=== PATIENT | female | born 1970 | race Caucasian/White ===

== ENCOUNTER 2024-11-08 16:37 | Inpatient (IN) | payer BC ==
[2024-11-08] MEDS ORDERED: FAMOTIDINE 20 MG/2 ML VIAL IV ONE (17:16)
[2024-11-08] MEDS ORDERED: MORPHINE 4 MG/ML SYR ONE (17:16)
[2024-11-08] MEDS ORDERED: ONDANSETRON 4 MG/2 ML VIAL ONE (17:16)
[2024-11-08] MEDS ORDERED: NA CHLORIDE 0.9% 1,000 ML ONE (17:16)
[2024-11-08 17:19] LABS: Absolute Lymphocytes (CBC) 1.3 K/uL (0.7-4.9); Hematocrit 51.2 % (36.0-45.0); Hemoglobin 17.7 g/dL (12.0-15.0); MCH 30.1 pg (27.0-35.0); MCHC 34.6 g/dL (32.0-36.0); MCV 86.9 fL (80-100); MPV 7.7 fL (7.6-11.3); Nucleated RBC Absolute Count 0.1 (0-0); Nucleated Red Blood Cells % 0.4 % (0-0); RBC Red Blood Cell Count 5.89 M/uL (3.86-4.86); White Blood Count 21.30 thou/uL (4.3-10.9)
[2024-11-08 17:35] LABS: ALT/SGPT 16.0 U/L (13-56); AST/SGOT 18.0 U/L (15-37); Albumin 3.6 g/dL (3.4-5.0); Albumin/Globulin Ratio 0.8 (1.1-1.8); Alkaline Phosphatase 85.0 U/L (45-117); Anion Gap 14.4 mEq/L (5.0-15.0); BUN Blood Urea Nitrogen 8.0 mg/dL (7-18); Globulin 4.3 g/dL (2.3-3.5); Glucose Level 161.0 mg/dL (74-106); Lipase 23.0 U/L (13-75); Potassium 3.4 mEq/L (3.5-5.1)
[2024-11-08 18:17] LABS: Differential Total Cells Count 100
[2024-11-08 18:18] LABS: Segmented Neutrophils 86 % (40-80)
[2024-11-08 18:19] LABS: Smudge Cells PRESENT; Toxic Granulation 1+
[2024-11-08 18:20] LABS: Blood Morphology Comment NOT SEEN (NOT SEEN); Platelets, Giant PRESENT
[2024-11-08] MEDS ORDERED: NA CHLORIDE 0.9% 100 ML ONE (18:51)
[2024-11-08] MEDS ORDERED: PIPERACIL/TAZO 3.375 GM VIAL IV ONE (18:52)
--- NOTE | 2024-11-08 18:54 | RAD REPORT ---
EXAMINATION: CT Abdomen Pelvis W Contrast CLINICAL INDICATION: Female, 54 years old. ABD PAIN TECHNIQUE: CT abdomen and pelvis was performed, after the administration of IV contrast, as per depar tment protocol. Axial, sagittal and coronal reconstructions were obtained. One or more of the following dose reduction techniques were used: Automated exposure control, adjustment of the mA and k V according to patient size, and iterative reconstruction. Unless otherwise specified, incidental findings do not require dedicated imaging follow-up. COMPARISON: Pelvis MRI 01/29/2018. FINDINGS: LOWER CHEST: The visualized lung bases are clear. LIVER: Normal in size and contour. No focal lesion. BILIARY SYSTEM: Status post cholecystectomy. SPLEEN: Normal size. No focal lesion. PANCREAS: No mass, ductal dilation, or yancy-pancreatic fluid. ADRENALS: Normal; no mass. KIDNEYS: Normal size and contour. No hydronephrosis. Small exophytic left posterior cortical 1 cm cys t. URINARY BLADDER: Decompressed limiting evaluation. GASTROINTESTINAL TRACT: Mild free ascites predominantly in the pelvis. Distended small bowel througho ut the jejunum and proximal ileum. Abrupt transition point is seen in the upper pelvis just right of midline, see coronal image 41 series 202. Distal to this, there is a relatively short segment of d istended small bowel loop in the deeper pelvis, with another more distal abrupt transition point, best appreciated on coronal image 40 and sagittal image 67. The findings are concerning for closed lo op obstruction. No evidence of free air, or localized fluid collection. The decompressed large bowel with sigmoid mild diverticulosis. APPENDIX: Appendix surgically absent. LYMPH NODES: No lymphadenopathy. MUSCULOSKELETAL: No acute or suspicious osseous abnormality. ADDITIONAL FINDINGS: Lobulated cystic lesion in the right hemipelvis measuring 5.5 x 3.1 cm with foca l calcification at its superior margin abutting the psoas muscle, stable compared to the prior MRI, and may represent an adnexal cystic lesion versus an inclusion cyst. IMPRESSION: Findings suggestive of distal small bowel high-grade obstruction with mild free ascites, but no other evidence of perforation. Transition point is seen in the upper pelvis just right of midline. Subsequent relatively short segment distended small bowel loop, with an additional transition point a pproximately occurring at the same level, suggesting closed-loop obstruction due to adhesions. Other stable findings as above. THIS REPORT CONTAINS FINDINGS THAT MAY BE CRITICAL TO PATIENT CARE. The findings were verbally commun icated via telephone to Kyree King on 11/08/2024 6:47 PM.
--- NOTE | 2024-11-08 19:13 | ER ---
Nurse's Notes [facility] Name: Su Lozano Age: 54 yrs Sex: Female : 1970 Arrival Date: 11/08/2024 Time: 16:37 Bed 12 Private MD: Diagnosis: High grade small bowel obstruction;Abdominal pain, unspecified Presentation: 11/08 16:48 Chief complaint: Diffuse abdominal pain and constipation for last few days, vomiting hb today. Coronavirus screen: At this time, the client does not indicate any symptoms associated with coronavirus-19. Ebola Screen: No symptoms or risks identified at this time. Onset of symptoms was November 06, 2024. 16:48 Method Of Arrival: Ambulatory hb 16:48 Acuity: DAYANNA 3 hb 17:15 Risk Assessment: Do you want to hurt yourself or someone else? Patient reports no iw desire to harm self or others. 17:15 Initial Sepsis Screen: Does the patient meet any 2 criteria? No. Patient's initial iw sepsis screen is negative. Does the patient have a suspected source of infection? No. Patient's initial sepsis screen is negative. Historical: - Allergies: 16:49 No Known Allergies; hb - PMHx: 16:49 DM2; hb - PSHx: 16:49 Spinal Cyst; Cholecystectomy; hb - Immunization history:: Adult Immunizations unknown. - Infectious Disease History:: Denies. - Social history:: Smoking status: unknown. Screenin:33 [facility] ED Fall Risk Assessment (Adult) History of falling in the last 3 months, iw including since admission No falls in past 3 months (0 pts) Confusion or Disorientation No (0 pts) Intoxicated or Sedated No (0 pts) Impaired Gait No (0 pts) Mobility Assist Device Used No (0 pt) Altered Elimination No (0 pt) Score/Fall Risk Level 3 or more points = High Risk Oriented to surroundings, Maintained a safe environment. Abuse screen: Denies threats or abuse. Nutritional screening: Has had N/V for 3 or more days. Tuberculosis screening: No symptoms or risk factors identified. Assessment: 17:15 General: Appears uncomfortable, ill, Behavior is calm, cooperative. Pain: Complains of iw pain in abdomen Pain currently is 9 out of 10 on a pain scale. Neuro: Level of Consciousness is awake, alert, obeys commands, Oriented to person, place, time, situation, Moves all extremities. Full function. Cardiovascular: Respiratory: Respiratory effort is even, unlabored, Respiratory pattern is regular, symmetrical. GI: Abdomen is flat, non-distended, Abd is soft X 4 quads Reports lower abdominal pain, upper abdominal pain, constipation, nausea, vomiting. Derm: Skin is fragile, is thin, Skin is clammy, Skin is pale, Skin temperature is cool. Musculoskeletal: Range of motion: intact in all extremities. 18:23 Reassessment: Patient appears in no apparent distress at this time. Patient and/or iw family updated on plan of care and expected duration. Pain level reassessed. Patient states feeling better. 19:10 Reassessment: Patient and/or family updated on plan of care and expected duration. Pain rg5 level reassessed. General: Appears in no apparent distress. Behavior is calm, cooperative, appropriate for age. Pain: Complains of pain in abdomen. Neuro: Level of Consciousness is awake, alert, obeys commands, Oriented to person, place, time, situation. Cardiovascular: Denies chest pain. Respiratory: Airway is patent Respiratory pattern is regular, symmetrical. GI: Reports lower abdominal pain, upper abdominal pain, constipation, vomiting. : No signs and/or symptoms were reported regarding the genitourinary system. Derm: Skin is intact, Skin is dry, Skin is normal. Musculoskeletal: Circulation, motion, and sensation intact. Range of motion: intact in all extremities. 20:00 Reassessment: Patient and/or family updated on plan of care and expected duration. Pain rg5 level reassessed. Patient is alert, oriented x 3, equal unlabored respirations, skin warm/dry/pink. Patient states symptoms have improved. 21:03 Reassessment: No changes from previously documented assessment. Patient and/or family rg5 updated on plan of care and expected duration. Pain level reassessed. Patient is alert, oriented x 3, equal unlabored respirations, skin warm/dry/pink. Vital Signs: 16:48 BP 124 / 96; Pulse 114; Resp 18; Temp 98.8; Pulse Ox 100% on R/A; Weight 61.69 kg; hb Height 5 ft. 2 in. ; Pain 9/10; 18:23 BP 139 / 90; Pulse 98; Resp 18; Pulse Ox 99% on R/A; Pain 4/10; iw 20:30 BP 142 / 90; Pulse 94; Resp 18; Pulse Ox 100% on R/A; rg5 21:01 BP 140 / 93; Pulse 97; Resp 19; Pulse Ox 100% on R/A; rg5 16:48 Body Mass Index 24.87 (61.69 kg, 157.48 cm) hb 16:48 Pain Scale: Adult hb 18:23 Pain Scale: Adult iw ED Course: 16:39 Patient arrived in ED. al6 16:40 Prosper Baugh DO is Attending Physician. ms3 16:49 Triage completed. hb 16:54 Yaritza Hansen, RN is Primary Nurse. iw 17:13 Initial lab(s) drawn, by me, sent to lab. Inserted saline lock: 22 gauge in left wrist, iw using aseptic technique. Blood collected. Flushed with 10 mL NS. 17:15 Arm band placed on. iw 17:33 Patient has correct armband on for positive identification. Client placed on continuous iw cardiac and pulse oximetry monitoring. NIBP monitoring applied. Door closed. Lights dimmed. Warm blanket given. Pillow given. 18:13 CT Abd/Pelvis - IV Contrast Only In Process Unspecified. EDMS 19:10 Provided Education on: NEEDS FOR ADMIT. rg5 19:12 Dre Zamora MD is Hospitalizing Provider. ms3 20:32 No provider procedures requiring assistance completed. Patient admitted, IV remains in rg5 place. intact, No redness/swelling at site. Administered Medications: 17:27 Drug: Famotidine IVP 20 mg IVP once; dilute with 10 mL 0.9% NaCl; give over 2 minutes iw Route: IVP; Site: left wrist; 18:25 Follow up: Response: No adverse reaction iw 17:27 Drug: Ondansetron IVP 4 mg IVP once; over 2 minutes Route: IVP; Site: left wrist; iw 18:25 Follow up: Response: No adverse reaction; Nausea is decreased iw 17:27 Drug: morphine IVP or IV 4 mg IVP once over 4 mins Route: IVP; Infused Over: 4 mins; iw Site: left wrist; 18:25 Follow up: Response: No adverse reaction; Pain is decreased iw 17:27 Drug: NS 0.9% IV 1000 ml IV at 1 bolus Per protocol; to be given as a bolus over 60 iw minutes Route: IV; Rate: 1 bolus; Site: left wrist; 19:05 Follow up: IV Status: Completed infusion; IV Intake: 1000ml rg5 18:59 Drug: Piperacillin-Tazobactam IVPB 3.375 grams IVPB once over 60 mins; (mix in NS 100 iw mL) Route: IVPB; Infused Over: 60 mins; Site: left wrist; 20:20 Follow up: IV Status: Completed infusion rg5 Medication: 19:10 VIS not applicable for this client. rg5 Intake: 19:05 IV: 1000ml; Total: 1000ml. rg5 Outcome: 19:13 Decision to Hospitalize by Provider. ms3 20:55 Admitted to Med/surg accompanied by tech, via stretcher, rg5 20:55 Condition: stable 20:55 Instructed on the need for admit, 21:16 Patient left the ED. rg5 Signatures: Dispatcher [employer] EDYaritza Hahn RN RN Cecille Maurer RN RN hb Sims, Marcus, DO DO ms3 Yaya Paez RN RN rg5 Maria Alejandra Sampson al6
--- NOTE | 2024-11-08 19:13 | EDPHYS ---
Physician Documentation [facility] Name: Su Lozano Age: 54 yrs Sex: Female : 1970 Arrival Date: 11/08/2024 Time: 16:37 Bed 12 Private MD: ED Physician Prosper Baugh HPI: 11/08 20:15 This 54 yrs old Female presents to ER via Ambulatory with complaints of Abdominal Pain, ms3 Vomiting, Constipation. 20:15 54-year-old female with past medical history of diabetes presents to the emergency ms3 department for nausea, vomiting, abdominal pain that began yesterday. Patient states pain is a 9/10. Patient denies any alleviating or inciting factors. Patient denies fevers or chills.. Historical: - Allergies: 16:49 No Known Allergies; hb - PMHx: 16:49 DM2; hb - PSHx: 16:49 Spinal Cyst; Cholecystectomy; hb - Immunization history:: Adult Immunizations unknown. - Infectious Disease History:: Denies. - Social history:: Smoking status: unknown. ROS: 20:15 Constitutional: Negative for fever, and chills. Cardiovascular: Negative for chest ms3 pain, and palpitations. Respiratory: Negative for shortness of breath, cough, wheezing, and pleuritic chest pain, 20:15 MS/Extremity: Negative for injury and deformity, Skin: Negative for injury, rash, and discoloration, 20:15 Abdomen/GI: Positive for abdominal pain, Exam: 19:52 ECG was reviewed by the Attending Physician. ms3 20:15 Constitutional: This is a well developed, well nourished patient who is awake, alert, ms3 and in no acute distress. Cardiovascular: Regular rate and rhythm with a normal S1 and S2. No gallops, murmurs, or rubs. Normal PMI, no JVD. No pulse deficits. Respiratory: Lungs have equal breath sounds bilaterally, clear to auscultation and percussion. No rales, rhonchi or wheezes noted. No increased work of breathing, no retractions or nasal flaring. 20:15 Abdomen/GI: Inspection: abdomen appears normal, Bowel sounds: normal, in all quadrants, Palpation: moderate abdominal tenderness, in all quadrants, Vital Signs: 16:48 BP 124 / 96; Pulse 114; Resp 18; Temp 98.8; Pulse Ox 100% on R/A; Weight 61.69 kg; hb Height 5 ft. 2 in. ; Pain 9/10; 18:23 BP 139 / 90; Pulse 98; Resp 18; Pulse Ox 99% on R/A; Pain 4/10; iw 20:30 BP 142 / 90; Pulse 94; Resp 18; Pulse Ox 100% on R/A; rg5 21:01 BP 140 / 93; Pulse 97; Resp 19; Pulse Ox 100% on R/A; rg5 16:48 Body Mass Index 24.87 (61.69 kg, 157.48 cm) hb 16:48 Pain Scale: Adult hb 18:23 Pain Scale: Adult iw MDM: 16:43 Medical Screening Exam initiated ms3 20:15 Differential diagnosis: Nonspecific abd pain, gastritis, pancreatitis, appendicitis, ms3 diverticulitis, viral gastroenteritis, Bowel obstruction. Data reviewed: vital signs, nurses notes, lab test result(s), EKG, and as a result, I will admit patient. Consideration of Admission/Observation Patient was admitted/placed on observation. Management of patient was discussed with the following: Hospitalist: Dr. Zamora. [employer] Officer: Dr Potts. I considered the following discharge prescriptions or medication management in the emergency department Medications were administered in the Emergency Department. See MAR. Counseling: I had a detailed discussion with the patient and/or guardian regarding the historical points, exam findings, and any diagnostic results supporting the discharge/admit diagnosis, lab results, radiology results, the need for further work-up and treatment in the hospital. ED course: Discussed labs and CT findings with patient. Discussed case with Dr. Potts and he has seen patient in the emergency department. Discussed case with Dr. Zamora and he accepts patient for admission. 11/08 16:57 Order name: CBC with Diff; Complete Time: 19:05 ms3 11/08 16:57 Order name: CMP; Complete Time: 18:02 ms3 11/08 16:57 Order name: Lipase; Complete Time: 18:02 ms3 11/08 18:03 Order name: BNP; Complete Time: 19:37 ms3 11/08 18:03 Order name: Blood Culture Adult (2) ms3 11/08 18:03 Order name: Lactate w/ 2H reflex if indic.; Complete Time: 19:22 ms3 11/08 18:03 Order name: Protime (+inr) ms3 11/08 18:03 Order name: Ptt, Activated ms3 11/08 18:03 Order name: Troponin HS; Complete Time: 19:37 ms3 11/08 18:19 Order name: Manual Differential; Complete Time: 19:05 EDMS 11/08 19:53 Order name: CBC with Automated Diff EDMS 11/08 19:53 Order name: CBC with Automated Diff EDMS 11/08 19:53 Order name: Comprehensive Metabolic Panel EDMS 11/08 19:53 Order name: Comprehensive Metabolic Panel EDMS 11/08 16:57 Order name: CT Abd/Pelvis - IV Contrast Only; Complete Time: 19:05 ms3 11/08 19:55 Order name: Abdomen EDMS 11/08 19:56 Order name: Abdomen 1 View (KUB) EDMS 11/08 18:03 Order name: EKG; Complete Time: 18:03 ms3 11/08 19:53 Order name: CONS Physician Consult EDMS 11/08 16:57 Order name: IV Saline Lock; Complete Time: 17:13 ms3 11/08 16:57 Order name: Labs collected and sent; Complete Time: 17:13 ms3 11/08 18:03 Order name: Accucheck; Complete Time: 18:32 ms3 11/08 18:03 Order name: Cardiac monitoring; Complete Time: 18:32 ms3 11/08 18:03 Order name: EKG - Nurse/Tech; Complete Time: 18:48 ms3 11/08 18:03 Order name: IV Saline Lock - Large Bore; Complete Time: 18:12 ms3 11/08 18:03 Order name: O2 Per Protocol; Complete Time: 18:12 ms3 11/08 18:03 Order name: O2 Sat Monitoring; Complete Time: 18:12 ms3 11/08 18:03 Order name: Vital Signs; Complete Time: 18:12 ms3 EC:52 Rate is 93 beats/min. Rhythm is regular. QRS [place] is Normal. MT interval is normal. QRS ms3 interval is normal. Clinical impression: NSR w/ Non-specific ST/T Changes. Interpreted by me. Reviewed by me. Administered Medications: 17:27 Drug: Famotidine IVP 20 mg IVP once; dilute with 10 mL 0.9% NaCl; give over 2 minutes iw Route: IVP; Site: left wrist; 18:25 Follow up: Response: No adverse reaction iw 17:27 Drug: Ondansetron IVP 4 mg IVP once; over 2 minutes Route: IVP; Site: left wrist; iw 18:25 Follow up: Response: No adverse reaction; Nausea is decreased iw 17:27 Drug: morphine IVP or IV 4 mg IVP once over 4 mins Route: IVP; Infused Over: 4 mins; iw Site: left wrist; 18:25 Follow up: Response: No adverse reaction; Pain is decreased iw 17:27 Drug: NS 0.9% IV 1000 ml IV at 1 bolus Per protocol; to be given as a bolus over 60 iw minutes Route: IV; Rate: 1 bolus; Site: left wrist; 19:05 Follow up: IV Status: Completed infusion; IV Intake: 1000ml rg5 18:59 Drug: Piperacillin-Tazobactam IVPB 3.375 grams IVPB once over 60 mins; (mix in NS 100 iw mL) Route: IVPB; Infused Over: 60 mins; Site: left wrist; 20:20 Follow up: IV Status: Completed infusion rg5 Disposition Summary: 11/08/24 19:13 Hospitalization Ordered Notes: Hospitalization Status: Inpatient Admission ms3 Provider: Dre Zamora ms3 [facility] ms3 Condition: Stable ms3 Problem: new ms3 Symptoms: are unchanged ms3 Bed/Room Type: Standard ms3 Room Assignment: 206(11/08/24 20:25) vk Diagnosis - High grade small bowel obstruction ms3 - Abdominal pain, unspecified ms3 Forms: - Medication Reconciliation Form ms3 - SBAR form ms3 - Leadership Thank You Letter ms3 Signatures: Dispatcher [employer] Yaritza Alcantara RN RN iw Cecille Maurer RN RN hb Sims, Marcus, DO DO ms3 Valerie Leyva vk Yaya Paez RN RN rg5 Corrections: (The following items were deleted from the chart) 20:25 19:13 ms3 vk
[2024-11-08 19:25] LABS: NT PRO-BNP 144.0 pg/mL (<125); Troponin High Sensitivity 7.1 (<58.9)
--- NOTE | 2024-11-08 21:19 | RAD REPORT ---
EXAM: XR Abdomen 1 View (KUB) HISTORY: [facility] MAIN Placement of NGT/OGT. Post Insertion. Pls call Floor to confirm if patient is ready. COMPARISON: CT abdomen and pelvis of the same day FINDINGS: Single view of the abdomen shows distended small bowel in the upper abdomen. Early excretio n of contrast in the renal pelves noted. Enteric tube loops in the proximal stomach. No suspicious calcifications are seen. The bones are unremarkable. IMPRESSION: Enteric tube loops in the proximal stomach. Proximal distended small bowel compatible wit h obstruction again seen.
[2024-11-08 21:59] VITALS: BMI 24.2
[2024-11-08] MEDS: MORPHINE 4 MG/ML SYR IV PRN (22:47)
[2024-11-08] MEDS: CIPROFLOXACIN 400mg IV 400 MG/200 ML BAG IV SCH (22:47)
[2024-11-08] MEDS: NA CHLORIDE 0.9% 1,000 ML IV SCH (22:48)
[2024-11-09] MEDS: METRONIDAZOLE 500mg IVPB 500 MG/100 ML BAG IV SCH (01:36)
[2024-11-09 05:57] LABS: Absolute Lymphocytes (CBC) 1.9 K/uL (0.7-4.9); Hematocrit 41.6 % (36.0-45.0); Hemoglobin 14.6 g/dL (12.0-15.0); MCH 30.3 pg (27.0-35.0); MCHC 35.1 g/dL (32.0-36.0); MCV 86.4 fL (80-100); MPV 7.5 fL (7.6-11.3); Nucleated RBC Absolute Count 0.0 (0-0); Nucleated Red Blood Cells % 0.1 % (0-0); RBC Red Blood Cell Count 4.81 M/uL (3.86-4.86); White Blood Count 17.30 thou/uL (4.3-10.9)
[2024-11-09 06:09] LABS: PT Prothrombin Time 13.7 SECONDS (10-13.0); PTT, Activated Partial Thromb 29.4 SECONDS (27.2-37.4); Protime INR 1.22
[2024-11-09 06:25] LABS: ALT/SGPT < 14 U/L (13-56); AST/SGOT 16 U/L (15-37); Albumin 2.9 g/dL (3.4-5.0); Albumin/Globulin Ratio 0.9 (1.1-1.8); Alkaline Phosphatase 64 U/L (45-117); Anion Gap 8.4 mEq/L (5.0-15.0); BUN Blood Urea Nitrogen 6 mg/dL (7-18); Globulin 3.4 g/dL (2.3-3.5); Glucose Level 111 mg/dL (74-106); Potassium 3.4 mEq/L (3.5-5.1)
[2024-11-09] MEDS: ONDANSETRON 4 MG/2 ML VIAL IV PRN (06:36)
[2024-11-09] MEDS: D5 0.9 NS 1,000 ML IV SCH (08:01)
[2024-11-09] MEDS: KCL 20 MEQ/100 mL IVPB 20 MEQ/100 ML BAG IV SCH ×2 (08:02→23:09)
[2024-11-09] MEDS: ENOXAPARIN 30 MG/0.3 ML SQ SCH (08:10)
--- NOTE | 2024-11-09 10:11 | RAD REPORT ---
EXAMINATION: CT ABDOMEN AND PELVIS WITH AND WITHOUT CONTRAST CLINICAL INDICATION: Abdominal pain TECHNIQUE: CT abdomen and pelvis was performed before and after the administration of IV contrast as per department protocol. 100 cc Isovue 300 administered intravenously. Axial, sagittal and coronal reconstructions were obtained. One or more of the following dose reduction techniques were used: Auto mated exposure control, adjustment of the mA and/or kV according to patient size, and/or iterative reconstruction. Unless otherwise specified, incidental findings do not require dedicated imaging foll ow-up. [id number]. Oral contrast given through a cutaneous gastrostomy tube. COMPARISON: November 08, 2024 FINDINGS: Cholecystectomy. Liver, spleen, pancreas, adrenals and right kidney unremarkable. Small left renal cyst. Mild dilatation of jejunum and portion of ileum. Mid and distal ileum and colon decompressed. No cont rast visualized within the distal ileum. No significant change in the small bowel dilatation since prior examination. Possibility of a closed loop obstruction again demonstrated. No free air. Small am ount ascites Hysterectomy. No adnexal mass IMPRESSION: High-grade ileal obstruction
--- NOTE | 2024-11-09 13:00 | P.PN ---
Date of Service: 11/09/24 Patient is a 54-year-old woman who presents to the hospital with a bowel obstruction and possible high-grade/closed-loop obstruction. -Patient seen in the ER yesterday and stated her pain was significantly improved she had no nausea or vomiting but did not pass any gas since admission. I have seen the patient today and I have repeated a CT scan with a 2-hour delay with p.o. contrast to see if any contrast made its way around however no contrast mated to the distal ileum or colon consistent with high-grade obstruction/possible closed-loop obstruction. I discussed this with the patient and recommended surgical intervention however at this time she states she continues to feel better and as such does not want surgical intervention at this time to see if she opens up in the next day or so as she feels [place] going on her abdomen at this time. I have explained that this can exacerbate her complications after surgery including loss of additional intestine due to ischemic changes and/or possible rupture or concomitant complications including cardiovascular pulmonary and other unforeseen complications however patient stat es she would like to delay at this time and see if she is able to open up by tomorrow and take it day by day. -I have explained the respites and alternatives of operative versus nonoperative management and have recommended operative intervention at this time based on the findings. - Will continue to follow along with you - Will repeat KUB in the morning
[2024-11-09 19:10] LABS: Magnesium 1.8 mg/dL (1.6-2.4); Potassium 3.4 mEq/L (3.5-5.1)
[2024-11-09] MEDS: MAGNESIUM SULFATE 1 gm IVPB 1 GM/100 ML BAG IV ONE ×2 (19:29→19:59)
--- NOTE | 2024-11-10 03:33 | HP ---
Date of Admission: 11/09/2024 Chief Complaint: Abdominal pain, nausea, vomiting. History Of Present Illness: Ms. Lozano is a 54-year-old pleasant female patient who started to have nausea, vomiting the day before yesterday, and yesterday, she started to have abdominal pain, so she came into emergency room. After she was evaluated in the ER, she was diagnosed as having small bowel obstruction and I was contacted requesting admission to hospital and patient was admitted to the hospital with General Surgery consultation from Dr. Potts. The patient is on Mounjaro for her type 2 diabetes, and she has done well with this medication except lately she reports that she is having increased constipation problem. She always had constipation, but lately it has gotten worse. Review of Systems: GI: As mentioned above. All other systems reviewed and negative. Allergies: None Medications: Mounjaro 5 mg once a week, citalopram 40 mg daily, pregabalin 100 mg two times a day, vitamin B12 daily, duloxetine 20 mg daily. Past Medical History: Diabetes mellitus, morbid obesity, hyperlipidemia, depression, anxiety, insomnia, lumbar radiculopathy. Past Surgical History: Cholecystectomy, hysterectomy, removal of ovarian cyst, back surgery, reduction mammoplasty. Family History: Father with cerebral aneurysm, mother and sister has hypertension, maternal grandmother had breast cancer. Social History: Negative for smoking, alcohol use. Physical Examination: Vital Signs: Temperature 98.2, pulse 103, respiratory rate 16, blood pressure 116/74, oxygen saturation 96%. General: Awake, alert, oriented, not in distress. HEENT: Head atraumatic, normocephalic. Conjunctivae nonerythematous. Sclerae white. Mouth, no thrush or edema noted. Ears/Nose, no mass, lesion, discharge noted. Neck: Supple. No JVD, lymph nodes, bruit, thyromegaly noted. Lungs: Bilateral good equal air entry. Clear to auscultation. No rhonchi. No rales. Heart: Normal heart sounds, no murmur or gallop. Abdomen: Soft. Bowel sounds normal. Presence of tenderness in right upper quadrant, left upper quadrant, left lower quadrant, and periumbilical region. No rebound tenderness. No abdominal distention. No guarding. No rigidity. No rebound tenderness. Extremities: No leg edema. No calf tenderness. Skin: No rash, ulcer, cellulitis. Lymphatics: No lymph node enlargement in neck, supraclavicular, infraclavicular region. Neuro: No focal neurological deficit. Chest: Unremarkable. External Genitalia: Deferred. Rectal: Deferred. Laboratory Data: Yesterday, WBC 21.3, hemoglobin 17.7, platelets 356. Sodium 136, potassium 3.4, chloride 105, bicarb 20, BUN 8, creatinine 0.78, glucose 161. Liver function tests unremarkable except total bilirubin 1.5 and lipase 23. Today, WBC 17.3, hemoglobin 14.6, platelets 289. Sodium 142, potassium 3.4, chloride 111, bicarb 26, BUN 6, creatinine 0.67, glucose 111. Liver function tests unremarkable except total bilirubin 1.1. CAT scan of the abdomen and pelvis done in the emergency room shows evidence of distal small bowel obstruction, high grade in nature. No evidence of perforation and presence of sigmoid diverticulosis. Impression: 1. Small bowel obstruction. 2. Hypokalemia. 3. Diverticulosis. 4. Type 2 diabetes mellitus. Plan: We will go ahead and admit the patient to hospital for further evaluation and management of this problem. The patient is appropriate for inpatient and is expected to spend 2 midnights in hospital. For her small bowel obstruction, we will keep her n.p.o. NG tube is in place. We will keep it to low intermittent suction. IV fluid will be given. Pain medication, nausea medication were ordered and IV antibiotics will be given per order. Consult general surgeon, Dr. Potts, who has evaluated the patient and the patient may need surgical intervention for this bowel obstruction and details were discussed with her and we will follow up with Dr. Potts regarding further treatment plan. DVT prophylaxis will be given using Lovenox. Replace electrolyte per protocol and details and plan of treatment discussed with the patient. We will see her tomorrow for followup. JEANA/MODL Voice ID: [id number]
[2024-11-10 05:33] LABS: Absolute Lymphocytes (CBC) 2.4 K/uL (0.7-4.9); Hematocrit 36.1 % (36.0-45.0); Hemoglobin 12.8 g/dL (12.0-15.0); MCH 31.1 pg (27.0-35.0); MCHC 35.5 g/dL (32.0-36.0); MCV 87.6 fL (80-100); MPV 7.7 fL (7.6-11.3); Nucleated RBC Absolute Count 0.0 (0-0); Nucleated Red Blood Cells % 0.0 % (0-0); RBC Red Blood Cell Count 4.12 M/uL (3.86-4.86); White Blood Count 10.40 thou/uL (4.3-10.9)
[2024-11-10 06:11] LABS: Anion Gap 5.9 mEq/L (5.0-15.0); BUN Blood Urea Nitrogen 4.0 mg/dL (7-18); Glucose Level 114.0 mg/dL (74-106); Magnesium 2.1 mg/dL (1.6-2.4); Potassium 3.9 mEq/L (3.5-5.1)
--- NOTE | 2024-11-10 08:20 | RAD REPORT ---
EXAM: XR Abdomen 1 View (KUB) HISTORY: [facility] Evaluate for Contrast movement COMPARISON: CT abdomen pelvis 11/09/2024 FINDINGS: Single view of the abdomen shows central upper abdominal small bowel dilation with caliber measuring up to 3.8 cm. Diluted orally ingested contrast, predominantly seen in the left hemiabdomen. No suspicious calcifications are seen. The bones are unremarkable. IMPRESSION: Persistent small bowel obstruction pattern.
[2024-11-10] MEDS: POTASSIUM PHOS IN 0.9 % NACL 15 MMOL/250 ML BAG IV ONE (09:40)
[2024-11-10] MEDS: Mupirocin NASAL 2 APPL/1 GM TUBE NAS SCH (09:41)
[2024-11-10] MEDS: ONDANSETRON 4 MG/2 ML VIAL IV PRN (12:15)
[2024-11-10] MEDS ORDERED: LIDOCAINE 2% MPF 5 ML VIAL ONE (13:32)
[2024-11-10] MEDS ORDERED: MIDAZOLAM HCL 2 MG/2 ML INJ ONE (13:32)
[2024-11-10] MEDS ORDERED: FENTANYL CITR 100 MCG/2 ML ONE (13:32)
[2024-11-10] MEDS ORDERED: ROCURONIUM 50 MG/5 ML VIAL IV ONE (13:32)
[2024-11-10] MEDS ORDERED: ONDANSETRON 4 MG/2 ML VIAL ONE (13:32)
[2024-11-10] MEDS: SUGAMMADEX SODIUM 200 MG/2 ML VIAL IV ONE (13:34)
[2024-11-10] MEDS: SUCCINYLCHOLINE 20 MG/ML (10 ML) IV ONE (13:35)
[2024-11-10] MEDS ORDERED: SUCCINYLCHOLINE 200 MG/10 ML 200 MG/10 ML SYR IV ONE (14:44)
[2024-11-10] MEDS: NA CHLORIDE 0.9% 1,000 ML ONE ×2 (14:47→17:14)
[2024-11-10] MEDS: METRONIDAZOLE 500mg IVPB 500 MG/100 ML BAG IV ONE (16:06)
[2024-11-10] MEDS: LIDOCAINE HCL/EPINEPHRINE 20 ML MDV ONE (16:13)
[2024-11-10] MEDS ORDERED: EPHEDRINE SULF 50 MG/ML VIAL ONE (16:48)
[2024-11-10] MEDS: AA 5%/D20W/ELECTROLYTES-TPN 2,000 ML, Lipids 20% 250 ML with MULTIVITAMINS INJ 10 ML IV SCH (17:00)
--- NOTE | 2024-11-10 18:10 | P.OP ---
Preoperative diagnosis: Small Bowel Obstruction Postoperative diagnosis: Small Bowel Obstruction Primary procedure: Exploratory Laparotomy with Small Bowel Resection Anesthesia: GETA Estimated blood loss: <10cc Specimen: Small Bowel Findings: 10cm segment of distal small bowel ischemia entrapped in adhesions in pelvi Complications: None Transferred to: Recovery Room Condition: Good
[2024-11-10] MEDS ORDERED: D10W 125 ML IV PRN (18:22)
[2024-11-10] MEDS ORDERED: GLUCAGON 1 MG/VIAL IM PRN (18:22)
[2024-11-10] MEDS: DEXTROSE 10%-WATER 500 ML IV SCH (19:00)
[2024-11-10] MEDS: HYDROMORPHONE HCL 1 MG/ML INJ ONE (19:15)
--- NOTE | 2024-11-10 20:22 | RAD REPORT ---
EXAMINATION: Chest Single View VIEWS: One view CLINICAL INDICATION: Female, 54 years old. PICC line COMPARISON: 11/08/2024 IMPRESSION: Right subclavian approach PICC with tip overlying the right atrium. NG tube significant coiling in th e stomach. Evaluation of the lungs limited due to overpenetration and artifact.
[2024-11-10] MEDS: INSULIN REGULAR (HUMAN) 100 UNIT/ML SQ SCH (21:00)
--- NOTE | 2024-11-10 21:24 | CON ---
Date of Consultation: 11/08/2024 Brief Hpi: The patient is a 54-year-old woman, who has a past medical history of cholecystectomy, hy sterectomy, ovarian cyst removal, back surgery, reduction mammoplasty, who presented to the hospital with several days of abdominal pain, nausea, vomiting starting 2 days before her presentation to the hospital. She started having abdominal pain that got progressively worse and as such, she came to [facility] emergency room with the above-stated complaints. She takes Mounjaro for diabetes with increased co nstipation. Otherwise, no other significant bowel obstructive type process that she is aware of. Past Medical History: Significant for diabetes, morbid obesity, hyperlipidemia, depression, anxiety, insomnia, and lumbar radiculopathy. Past Surgical History: Cholecystectomy, hysterectomy, ovarian cyst removal, back surgery, reduction mammoplasty. Family History: Significant for cerebral aneurysm, hypertension in her parents, breast cancer in a g randmother. She denies smoking, alcohol, recreational drug use Review of Systems: Ten-point review of systems other than HPI, denies. Allergies: NO KNOWN DRUG ALLERGIES. Physical Examination: General: At the time of examination, she is awake, alert, oriented. Psychiatric: She is appropriate and conversive. HEENT: She is normocephalic. Sclerae icteric. Mucous membranes moist. Oropharynx clear. Neck: Supple without JVD. Chest: Symmetric excursion. Cardiovascular: Regular rate and rhythm. Pulmonary: Clear to auscultation bilaterally. Abdomen: Soft with only mild global tenderness to palpation. No rebound. No guarding. No focal pe ritonitis. Not significantly distended, not tympanic. Extremities: No clubbing, cyanosis, or edema. Skin: Warm and dry. Laboratory Data: Revealed a white blood cell count of 21.3, hemoglobin 17.7 and hematocrit of 51.2, platelet count was 356. Her sodium 136, potassium 3.4, chloride 105, carbon dioxide 20, BUN 8, creat inine 0.7, glucose was 161. Lactic acid was 1.9. Admission total bilirubin 1.5, AST 18, ALT is 16, alkaline phosphatase 85, lipase is 23. She had imaging performed, which included a CT scan of the ab domen and pelvis, which was officially read as mild free ascites predominantly pelvis, distended smal l bowel through the jejunum and proximal ileum, abrupt transition point seen in the upper pelvis just right of midline, distal to this, this is relatively short segment, distended small bowel loop in th e deeper pelvis with another more distal abrupt transition point. The findings are concerning for cl osed-loop obstruction. No evidence of free air localized fluid collection, decompressed large bowel with sigmoid mild diverticulosis, lobulated cystic lesion in the right hemipelvis measuring 5.5 x 3.1 with focal calcifications superior margin abutting the psoas muscle, stable compared to prior MRI an d may represent adnexal cystic lesion versus an inclusion cyst. Assessment And Plan: This is a 54-year-old woman, who comes in with signs and symptoms of a closed-l oop bowel obstruction. 1. IV fluid hydration. 2. Antibiotic coverage. 3. N.p.o. status. 4. Serial abdominal exams. 5. I explained the risks, benefits, and alternatives of exploratory laparotomy/surgical management ve rsus nonoperative management and I have recommended surgical intervention based on her imaging findin gs. The patient states she would like to try nonoperative management prior to any consideration of s urgery at this point as she feels significant symptomatic improvement since being in the ER. I have explained that the pain medication may be masking some of the symptoms and if she does not have a sig nificant turnaround, I would likely recommend a repeat CT scan and based on the determination of the findings, make a decision whether surgical intervention would be indicated. However, given the patie nt's picture, I told her that the likelihood of her current findings are low and as such, she will likely need surgical intervention during this admission. I have explained the ri sks, benefits, and alternatives of procedure including, but not limited to bleeding, infection, damag e to the surrounding tissue, need further operative procedures, injury to internal organs, blood clot s, heart attack, strokes, other unforeseen complications in a perioperative period, need for more ashia dorinda is a possibility. The patient displayed understanding the above-stated plan and agreed to proce ed as indicated. Thank you for this interesting consult. PADMA/SHADI Voice ID: [id number] Report ID: [id number]
--- NOTE | 2024-11-10 23:44 | PN ---
Date of Progress Note: 11/10/2024 Subjective: The patient was seen this morning for followup. Denies any new complaints except she re ported that her abdominal pain was little worse than yesterday. Dr. Potts saw her yesterday and patient was not agreeable to do surgery yesterday and wanted to wait 1 more day, which is obviously today and her condition has not improved. No bowel movement. Not passing any gas from rectum. Hav ing increased nausea problem and increased pain so this morning when I talked to her, she was agreeab le for surgery. Objective: Vital Signs: Reviewed. HEENT: Unremarkable. Lungs: Clear to auscultation. Heart: Sounds normal. Abdomen: Soft, presence of tenderness mostly in the lower quadrants. No rebound tenderness. Bowel sounds are extremely hypoactive. Extremities: No leg edema. Laboratory Data: WBC 10.4, hemoglobin 12.8, platelets 252. Sodium 141, potassium 3.9, chloride 111, bicarb 28, BUN 4, creatinine 0.64, glucose 114, phosphorus 2.2, magnesium 2.1. Impression: 1. Small bowel obstruction. 2. Type 2 diabetes mellitus. 3. Diverticulosis. Plan: We will go ahead and continue current antibiotic. WBC count is back to normal. We will go ah ead and order a PICC line for her and once PICC line is in place, then we will start TPN and disconti nue IV fluid at that time. Her nausea medication was every 8 hours. I have changed it to every 4 ho urs as needed. Continue current pain medication every 4 hours as needed and KUB and x-ray done this morning. Results reviewed with Dr. Potts this morning and I did communicate with him regarding all the details and he did perform surgery later this afternoon and had to resect approximately 10 cm of terminal ileum. I will see her tomorrow for followup. The patient is on Lovenox for DVT prophylaxis . JEANA/MODL Voice ID: [id number] Report ID: [id number]
--- NOTE | 2024-11-11 02:40 | RAD REPORT ---
EXAM: XR Chest, 1 View CLINICAL HISTORY: The patient is 54 years old and is Female; Repeat PICC line insertion verification TECHNIQUE: Frontal view of the chest. COMPARISON: Exam performed the same day at 1749 hours FINDINGS: LUNGS: There are low lung volumes with perihilar and infrahilar linear atelectasis superimposed o n coarse interstitial markings. PLEURAL SPACE: Unremarkable. No pneumothorax. HEART: Unremarkable. No cardiomegaly. MEDIASTINUM: Unremarkable. Normal mediastinal contour. BONES/JOINTS: Unremarkable. No acute fracture. TUBES, LINES AND DEVICES: Right upper extremity PICC is present with the tip in the SVC. Enteri c tube is noted looped upon itself within the proximal stomach. UPPER ABDOMEN: Surgical clips are present within the right upper quadrant. IMPRESSION: Right upper extremity PICC is present with the tip in the SVC. Electronically signed by: Karyna Shepard MD 11/11/2024 02:35 AM CDT RP Due to temporary technical issues with the [employer] reporting system, reports are being brett d by the in-house radiologist without review as a courtesy to ensure prompt reporting the interpreting radiologist is fully responsible for the content of the report. Transcribed Date/Time: 11/11/2024 2:39 AM
[2024-11-11] MEDS: HYDROMORPHONE HCL 1 MG/ML INJ IV ONE (03:09)
--- NOTE | 2024-11-11 03:48 | OP ---
Date of Procedure: 11/10/2024 Surgeon: Atiya Potts MD, Preoperative Diagnosis: Small bowel obstruction. Postoperative Diagnosis: Small bowel obstruction. Procedure: Exploratory laparotomy with small bowel resection. Anesthesia: General endotracheal. Estimated Blood Loss: Less than 10 cc. Specimen: Small bowel, distal ileum segment. Findings: 1. 10 cm segment of distal small bowel ischemia entrapped in adhesion in the pelvis. 2. Pelvic adhesions appeared to be a connection between the sigmoid colon, which had been swept over to the midline with adnexa on the right side forming a very tight junction, having some small bowel a pproximately 10 cm passed through this defect with a very tight neck. Complications: None. Disposition: The patient transferred to recovery room in good condition. Brief Hpi: The patient is a 54-year-old woman who presented to the hospital with small-bowel obstruc tion with likely high-grade component. The patient states she felt significantly better after presen tation, and as such, would like to delay any surgical intervention to see if she opened up. I recomm ended placement of a nasogastric tube and a Gastrografin study with CT scan abdomen and pelvis the day to see if there was evidence of improvement and/or progression. We performed that CT sca n which showed no progression of contrast that was yesterday on 11/09/2024. I recommended surgical i ntervention at that time. However, the patient stated that she felt significantly better still and w ould like to wait another day. I explained that now high-grade obstruction has a very low likelihood of improvement without surgical intervention and this had a likely closed-loop component that could lead to bowel ischemia and need for bowel resection, possible sepsis, and other complications. The p atient stated she wanted to at least wait 1 more day and we would repeat the abdominal x-ray to see i f the contrast made its way around the next morning, which would be today. Procedure In Detail: After informed consent was obtained, the patient was prepped and draped in usua l sterile fashion. After adequate anesthesia was achieved, I made a midline upper laparotomy incisio n down to just the infraumbilical position, down to subcutaneous tissues at the 10 blade. I then dis sected down through the fat planes along the linea alba to open the fascial plane. The peritoneum wa s grasped and opened sharply at this point. I then opened in its entirety under direct vision with e lectrocautery without any incident. I took down some adhesions from the anterior abdominal wall to [facility] omentum which were freed up using the LigaSure device. At this point, I proceeded to start runnin g the small bowel from the ligament of Treitz down to the ileocecal valve. However, I noted there wa s some small bowel entrapped in the pelvis and a transition point was appreciated at this point near the distal ileum, approximately 25 cm from the ileocecal valve. There was a small window posterior t o this, which was encased in adipose tissue. I freed this up from the adnexa on the right consistent with the fallopian tube and ovary which had been adhesed to the sigmoid colon on the right aspect. The sigmoid colon had been swept over onto the midline and was covering this area. I took down the a dhesions using electrocautery and some ischemic small bowel was appreciated. The ischemia was very s ignificant consistent with impending necrosis of the bowel. As such, I delivered this bowel out on [facility] surgical field. I ran the small bowel all the way to the ileocecal valve. At this point, no paula tional adhesions or lesions were appreciated. At this point, I created a protected field and proceed ed to create a mesenteric window in the proximal and distal aspect of the distal ileum using electroc autery. I then used a ANIRUDH 60 blue load to fire across the proximal and distal aspects of the bowel. At this point, I used the LigaSure to take the mesentery at this point, sent the specimen off small bowel. At this point, I placed the small bowel in a vvya-um-wkws anastomotic fashion using the antim esenteric border and I used 2 silk 3-0 sutures to align the proximal and distal aspects. I then crea atiya enterotomies in the proximal and distal aspects and placed a ANIRUDH 60 blue load into the channel an d fired at this point creating a common channel. No hemostasis required and the bowel was patent at this point. I then proceeded to sew the defect closed with a 3-0 PDS suture in a canal type stitch i n a running fashion with good apposition. I then pushed the enteric contents through this to ensure there was no leak and none was appreciated at this point. I then placed a second layer of Lembert us ing 3-0 silk Lembert sutures for a second layer of closure over the top of this and then closed the m esenteric defect with the 3-0 Vicryl suture in interrupted fashion. At this point, the dirty field w as removed and I cleansed the area. I then proceeded to milk enteric contents through the anastomosi s once again, which passed quite easily without any evidence of leakage or issue. At this point, the abdomen was copiously irrigated with several liters of warm saline. All effluent was suctioned out. No additional maneuvers required at this point. I then draped the omentum over the anterior surfac e of the intestines down into the pelvis and palpated the NG tube, which was found to be in good posi tion in the stomach. I then proceeded to place the abdominal FISH and closed the abdominal fascia in a running fashion using a #1 looped PDS suture with good approximation. I additionally found there was a small hole in the anterior rectus sheath on the right side only, and I closed this using two fi gure-of-8 #1 Vicryl sutures with good apposition as well. The area was copiously irrigated once agai n at this point after the abdominal FISH was completely removed, the abdominal closure was palpated a nd found to be good and closed in its entirety at this point. Irrigation was performed several times of the subcu and skin was closed with interrupted talia at this point, and a sterile dressing was placed over top. The patient tolerated the procedure without incident or complication, transferred i n good condition. All counts were correct at the end of the case. PADMA/SHADI Voice ID: [id number] Report ID: [id number]
[2024-11-11 05:12] LABS: Absolute Lymphocytes (CBC) 1.2 K/uL (0.7-4.9); Hematocrit 38.0 % (36.0-45.0); Hemoglobin 13.3 g/dL (12.0-15.0); MCH 30.6 pg (27.0-35.0); MCHC 35.0 g/dL (32.0-36.0); MCV 87.4 fL (80-100); MPV 7.2 fL (7.6-11.3); Nucleated RBC Absolute Count 0.0 (0-0); Nucleated Red Blood Cells % 0.0 % (0-0); RBC Red Blood Cell Count 4.35 M/uL (3.86-4.86); White Blood Count 15.80 thou/uL (4.3-10.9)
[2024-11-11 05:34] LABS: Anion Gap 7.4 mEq/L (5.0-15.0); Glucose Level 152 mg/dL (74-106); Magnesium 1.6 mg/dL (1.6-2.4); Potassium 3.4 mEq/L (3.5-5.1)
[2024-11-11 05:38] LABS: BUN Blood Urea Nitrogen < 3 mg/dL (7-18)
[2024-11-11] MEDS: MAGNESIUM SULFATE 1 gm IVPB 1 GM/100 ML BAG IV ONE (06:01)
[2024-11-11] MEDS: HYDROMORPHONE HCL 1 MG/ML INJ IV PRN (07:14)
[2024-11-11] MEDS: KCL 20 MEQ/100 mL IVPB 20 MEQ/100 ML BAG IV SCH (08:22)
[2024-11-11] MEDS: AA 5%/D20W/ELECTROLYTES-TPN 2,000 ML IV SCH (14:52)
--- NOTE | 2024-11-11 15:44 | P.PN ---
Subjective Date of Service: 11/11/24 Subjective: Improving (Patient's pain is improved from previous) Physical Examination - Vital Signs Temperature: 97.8 F Blood Pressure: 138/90 Pulse: 111 Respirations: 16 Pulse Ox (%): 95 - Physical Exam General: Alert, In no apparent distress, Oriented x3, Cooperative Respiratory: Diminished Cardiovascular: Regular rate/rhythm Gastrointestinal: Other (Soft, mild appropriate tenderness to palpation, no ndistended, incision is clean and dry, no peritonitis.) Neurological: Normal speech Assessment And Plan - Current Problems (Diagnosis) (1) Small bowel obstruction due to adhesions Current Visit: Yes Status: Acute Plan: Patient is a 54-year-old woman who is status post exploratory laparotomy and small bowel resection for small bowel adhesive disease. Surgery was on 11-10-2024. -Continue current pain management - Incentive spirometry encouraged patient has not been compliant at this point, I have reencouraged her to be compliant with her incentive spirometry. - Patient to sit up in bed and ambulate only with assist. - Continue to monitor bowel function. - Continue NG tube decompression at this point. - PICC line TPN - Serial abdominal exams. - Continue medical management per Dr. Zamora
[2024-11-11] MEDS: KETOROLAC 30 MG/ML INJ IV ONE (21:51)
--- NOTE | 2024-11-11 23:24 | PN ---
Date of Progress Note: 11/11/2024 Subjective: The patient was seen this morning for followup. Last night, nurse contacted me and info rmed me that the patient was having lot of pain and morphine was not helping, so Dilaudid 1 mg IV x1 dose was ordered and when I saw her this morning, her was with her at bedside and they both i nformed me that Dilaudid is working much better than morphine and they would like to continue that as a pain medication. NG tube is in place. She was not in any distress, lying in bed. Denies any oth er new complaints except pain which is under control now with Dilaudid. Objective: Vital Signs: Reviewed. HEENT: Unremarkable. Lungs: Clear to auscultation. Heart: Sounds normal. Abdomen: Abdominal binder is present. Bowel sounds absent. Extremities: No leg edema. Laboratory Data: WBC count 15.8, hemoglobin 13.3, platelets 247. Sodium 137, potassium 3.4, chlorid e 108, bicarb 25, BUN less than 3, creatinine 0.42, glucose 152, magnesium 1.6, phosphorus 2.5. Impression: 1. Small bowel obstruction. 2. Hypokalemia. 3. Type 2 diabetes mellitus. Plan: We will go ahead and continue NG tube to intermittent suction. Continue Dilaudid per order al dari with nausea medicine. DVT prophylaxis will be continued with Lovenox. Physical Therapy was andrey easley. PICC line is in place and the patient started to receive TPN today and I will see her tomorrow for followup. Continue current antibiotics. JEANA/MODL Voice ID: [id number] Report ID: [id number]
[2024-11-12 05:12] LABS: Absolute Lymphocytes (CBC) 1.4 K/uL (0.7-4.9); Hematocrit 38.5 % (36.0-45.0); Hemoglobin 13.4 g/dL (12.0-15.0); MCH 30.3 pg (27.0-35.0); MCHC 34.9 g/dL (32.0-36.0); MCV 86.8 fL (80-100); MPV 7.6 fL (7.6-11.3); Nucleated RBC Absolute Count 0.0 (0-0); Nucleated Red Blood Cells % 0.0 % (0-0); RBC Red Blood Cell Count 4.43 M/uL (3.86-4.86); White Blood Count 14.60 thou/uL (4.3-10.9)
[2024-11-12 05:27] LABS: Anion Gap 3.5 mEq/L (5.0-15.0); BUN Blood Urea Nitrogen 6.0 mg/dL (7-18); Glucose Level 135.0 mg/dL (74-106); Magnesium 2.0 mg/dL (1.6-2.4); Potassium 3.5 mEq/L (3.5-5.1)
[2024-11-12] MEDS: POTASSIUM PHOS IN 0.9 % NACL 15 MMOL/250 ML BAG IV ONE (09:00)
[2024-11-13 09:06] LABS: Absolute Lymphocytes (CBC) 1.0 K/uL (0.7-4.9); Hematocrit 36.5 % (36.0-45.0); Hemoglobin 12.8 g/dL (12.0-15.0); MCH 30.4 pg (27.0-35.0); MCHC 35.0 g/dL (32.0-36.0); MCV 86.8 fL (80-100); MPV 7.5 fL (7.6-11.3); Nucleated RBC Absolute Count 0.0 (0-0); Nucleated Red Blood Cells % 0.0 % (0-0); RBC Red Blood Cell Count 4.20 M/uL (3.86-4.86); White Blood Count 9.30 thou/uL (4.3-10.9)
[2024-11-13 09:18] LABS: Anion Gap 5.2 mEq/L (5.0-15.0); BUN Blood Urea Nitrogen 9.0 mg/dL (7-18); Glucose Level 160.0 mg/dL (74-106); Magnesium 1.8 mg/dL (1.6-2.4); Potassium 3.2 mEq/L (3.5-5.1)
--- NOTE | 2024-11-13 09:55 | PN ---
Date of Progress Note: 11/12/2024 Subjective: The patient was seen this morning for followup. No new complaints or problems reported by her. She was lying in bed, not in distress. Her abdominal pain is slightly better. Her current pain medication seems to be helping her. No new complaints or problems reported. Objective: Vital Signs: Reviewed. HEENT: Unremarkable. Lungs: Clear to auscultation. Heart: Sounds normal. Abdomen: Abdominal binder present. Bowel sounds absent. Extremities: No leg edema. Laboratory Data: WBC 14.6, hemoglobin 13.4, platelets 257. Sodium 137, potassium 3.5, chloride 104, bicarb 33, BUN 6, creatinine 0.44, glucose 135. Impression: 1. Small bowel obstruction. 2. Type 2 diabetes mellitus. 3. Hypertension. Plan: We will go ahead and continue NG tube to suction. Continue current TPN, pain medication, and IV antibiotics and continue to follow up with Dr. Potts and the patient to work with Physical aggie velez. I will see her tomorrow for followup. JEANA/MODL Voice ID: [id number] Report ID: [id number]
--- NOTE | 2024-11-13 11:18 | P.PN ---
Subjective Date of Service: 11/13/24 Subjective: Improving (No bowel function yet but pain continues to improve. Patient was ambulatory in the halls today.) Physical Examination - Vital Signs Temperature: 98.1 F Blood Pressure: 121/74 Pulse: 84 Respirations: 18 Pulse Ox (%): 95 - Physical Exam General: Alert, In no apparent distress, Oriented x3, Cooperative Gastrointestinal: Other (Soft, mild appropriate tenderness to palpation, no rebound or guarding no focal peritonitis incision is clean dressings changed today no issues with incision. [place] remain in place.) Neurological: Normal speech Assessment And Plan - Current Problems (Diagnosis) (1) Small bowel obstruction due to adhesions Current Visit: Yes Status: Acute Plan: Patient is a 54-year-old woman who is status post exploratory laparotomy and small bowel resection for small bowel adhesive disease. Surgery was on 11-10-2024. - Continue current pain management - Incentive spirometry encouraged patient has not been compliant at this point, I have reencouraged her to be compliant with her incentive spirometry. - Patient to sit up in bed and ambulate only with assist. - Continue to monitor bowel function. - Continue NG tube decompression at this point. - PICC line TPN - Serial abdominal exams. - Continue medical management per Dr. Zamora
[2024-11-13] MEDS: KCL 20 MEQ/100 mL IVPB 20 MEQ/100 ML BAG IV SCH (12:15)
--- NOTE | 2024-11-13 13:15 | PN ---
Date of Progress Note: 11/13/2024 Subjective: The patient was seen this morning for followup. She was lying in bed, not in any distre ss. She still has lot of abdominal pain, but every day it is getting slightly better as she reports since the surgery. She has not had a bowel movement. Not passing any flatus. No new complaints. Y day, she was able to stand next to the bed with physical therapy. Today, she will try to work w [facility] physical therapy and see if she can ambulate. Objective: Vital Signs: Reviewed. HEENT: Unremarkable. Lungs: Clear to auscultation. Heart: Sounds normal. Abdomen: Shows bowel sounds absent and presence of abdominal binder. Extremities: No leg edema. Impression: 1. Small bowel obstruction. 2. Type 2 diabetes mellitus. 3. Hypertension. Plan: We will continue current medication. Continue current antibiotic, TPN. She is tolerating mili t very well. The patient was encouraged to ambulate with therapy and will continue to follow up with Dr. Potts. JEANA/MODL Voice ID: [id number] Report ID: [id number]
[2024-11-14 06:38] LABS: Absolute Lymphocytes (CBC) 1.5 K/uL (0.7-4.9); Hematocrit 38.8 % (36.0-45.0); Hemoglobin 13.7 g/dL (12.0-15.0); MCH 30.6 pg (27.0-35.0); MCHC 35.2 g/dL (32.0-36.0); MCV 87.0 fL (80-100); MPV 7.4 fL (7.6-11.3); Nucleated RBC Absolute Count 0.0 (0-0); Nucleated Red Blood Cells % 0.2 % (0-0); RBC Red Blood Cell Count 4.46 M/uL (3.86-4.86); White Blood Count 9.20 thou/uL (4.3-10.9)
[2024-11-14 06:56] LABS: Anion Gap 6.6 mEq/L (5.0-15.0); BUN Blood Urea Nitrogen 11.0 mg/dL (7-18); Glucose Level 124.0 mg/dL (74-106); Magnesium 2.0 mg/dL (1.6-2.4); Potassium 3.6 mEq/L (3.5-5.1)
--- NOTE | 2024-11-14 11:20 | PN ---
Date of Progress Note: 11/14/2024 Subjective: The patient was seen this morning for followup. No new complaints or problems reported by her. Her abdominal pain since surgery is slowly improving on a day-to-day basis, still requiring pain medication and we did talk about possibility if she can increase the time interval between the d ose of pain medication that she is requesting and she states she will try it. Yesterday, she did amb ulate with physical therapy. NG tube is in place, draining greenish colored liquid. Damon catheter is in place draining clear yellow urine. Objective: Vital Signs: Reviewed. HEENT: Unremarkable. Lungs: Clear to auscultation. Heart: Sounds normal. Abdomen: Bowel sounds absent. No distention. Abdominal binder is present. Extremities: No leg edema. Laboratory Data: WBC 9.2, hemoglobin 13.7, and platelets 289. Sodium 138, potassium 3.6, chloride 1 04, bicarb 31, BUN 11, creatinine 0.44, glucose 114, magnesium 2, phosphorus 3.8, calcium 8.7. Impression: 1. Small bowel obstruction. 2. Type 2 diabetes mellitus. 3. Hypertension. Plan: We will go ahead and continue to follow up with Dr. Potts. Continue current TPN, IV antibio tics, pain medication. Ambulation was encouraged and I did talk to patient regarding possibility of removing Damon catheter and for her to use bedside commode with assistance and she is agreeable to do so. I w ill see her tomorrow for followup. JEANA/MODL Voice ID: [id number] Report ID: [id number]
--- NOTE | 2024-11-14 12:35 | P.PN ---
Subjective Date of Service: 11/14/24 Subjective: Improving (No gas or bowel movement yet pain continues to improve slowly. She was ambulatory yesterday in the halls.) Physical Examination - Vital Signs Temperature: 97.9 F Blood Pressure: 118/76 Pulse: 97 Respirations: 16 Pulse Ox (%): 97 - Physical Exam General: Alert, In no apparent distress, Oriented x3, Cooperative Gastrointestinal: Other (Soft mild appropriate tenderness to palpation no rebound or guarding no focal peritonitis Brianne in place.) - Studies Microbiology Data (last 24 hrs): 11/08/24 18:45 Blood - Blood Aerobic Blood Culture - Final No growth in 5 days. 11/08/24 18:45 Blood - Blood Anaerobic Blood Culture - Final No growth in 5 days. 11/08/24 18:30 Blood - Blood Aerobic Blood Culture - Final No growth in 5 days. 11/08/24 18:30 Blood - Blood Anaerobic Blood Culture - Final No growth in 5 days. Assessment And Plan - Current Problems (Diagnosis) (1) Small bowel obstruction due to adhesions Current Visit: Yes Status: Acute Plan: Patient is a 54-year-old woman who is status post exploratory laparotomy and small bowel resection for small bowel adhesive disease. Surgery was on 11-10-2024. - Continue current pain management - Incentive spirometry encouraged patient has not been compliant at this point, I have reencouraged her to be compliant with her incentive spirometry. - Patient to sit up in bed and ambulate only with assist. - Continue to monitor bowel function. - Continue NG tube decompression at this point. - PICC line TPN - Serial abdominal exams. - Continue medical management per Dr. Zamora
--- NOTE | 2024-11-14 12:40 | RAD REPORT ---
EXAM: Chest Single View HISTORY: 54 years Female NGT placement COMPARISON: 11/10/2024 FINDINGS: LUNGS/PLEURA: The lungs are clear. No pleural effusions or pneumothorax. No pulmonary edema. CARDIAC/MEDIASTINUM: The cardiac silhouette is within normal limits. UPPER ABDOMEN: Dilated small bowel present in the right upper quadrant measuring over 3 cm. Surgical clips in upper quadrant. BONES: No acute abnormality. LINES/TUBES/OTHER: NG tube is coiled in the stomach. Right subclavian approach PICC with tip at the d istal SVC. IMPRESSION: No evidence of acute cardiopulmonary disease. NG tube similarly coiled in the stomach. PICC with tip overlying the SVC. Dilated small bowel in the right upper quadrant may represent ileus.
[2024-11-15 04:57] LABS: Absolute Lymphocytes (CBC) 1.7 K/uL (0.7-4.9); Hematocrit 38.6 % (36.0-45.0); Hemoglobin 13.5 g/dL (12.0-15.0); MCH 30.4 pg (27.0-35.0); MCHC 34.9 g/dL (32.0-36.0); MCV 87.0 fL (80-100); MPV 7.2 fL (7.6-11.3); Nucleated RBC Absolute Count 0.0 (0-0); Nucleated Red Blood Cells % 0.0 % (0-0); RBC Red Blood Cell Count 4.43 M/uL (3.86-4.86); White Blood Count 9.20 thou/uL (4.3-10.9)
[2024-11-15 05:16] LABS: Anion Gap 7.6 mEq/L (5.0-15.0); BUN Blood Urea Nitrogen 13.0 mg/dL (7-18); Glucose Level 149.0 mg/dL (74-106); Magnesium 2.0 mg/dL (1.6-2.4); Potassium 3.6 mEq/L (3.5-5.1)
[2024-11-15] MEDS ORDERED: POTASSIUM CL SA 10 MEQ TAB PO ONE (09:00)
[2024-11-15] MEDS: KCL 20 MEQ/100 mL IVPB 20 MEQ/100 ML BAG IV SCH (10:46)
--- NOTE | 2024-11-15 22:20 | PN ---
Date of Progress Note: 11/15/2024 Subjective: The patient was seen this morning for followup. She was lying in bed, not in distress. Her was with her at bedside. Her pain is slowly improving on a day-to-day basis as she repo rts since her surgery. Yesterday, she did ambulate well better than what she did day before. No fla tus. No bowel movement. NG tube is in place draining greenish colored liquid. She is able to use [facility] since her Damon catheter was removed. The patient was complaining that yesterday she felt like having some chest pain in the center of her chest that lasted for few hours and no other as sociated symptoms. It did not radiate anywhere and after she took some nausea medicine, it got resol margaret. Troponin level was ordered this morning for that reason and troponin was normal. No need for a ny further intervention. It appears that her chest pain was atypical in nature. Objective: Vital Signs: Reviewed. HEENT: Unremarkable. Lungs: Clear to auscultation. Heart: Sounds normal. Abdomen: Shows presence of abdominal binder. Bowel sounds absent. Extremities: No leg edema. Laboratory Data: WBC 9.2, hemoglobin 13.5, platelets 343. Sodium 139, potassium 3.6, chloride 102, bicarb 33, BUN 13, creatinine 0.53, glucose 149, magnesium 2, phosphorus 3.9. Impression: 1. Small bowel obstruction. 2. Hypertension. 3. Type 2 diabetes mellitus. Plan: We will go ahead and continue current antibiotics. Continue TPN. Continue current pain medic ation. I have advised the patient to try to stretch the time interval between the pain medication as much as she can to help recover postoperatively now. Continue to ambulate as much as she can and will follow up with Dr. Potts and I will see her tomorrow for followup. JEANA/MODL Voice ID: [id number] Report ID: [id number]
[2024-11-16 05:20] LABS: Absolute Lymphocytes (CBC) 1.4 K/uL (0.7-4.9); Hematocrit 32.9 % (36.0-45.0); Hemoglobin 11.5 g/dL (12.0-15.0); MCH 30.7 pg (27.0-35.0); MCHC 35.0 g/dL (32.0-36.0); MCV 87.8 fL (80-100); MPV 7.2 fL (7.6-11.3); Nucleated RBC Absolute Count 0.0 (0-0); Nucleated Red Blood Cells % 0.0 % (0-0); RBC Red Blood Cell Count 3.75 M/uL (3.86-4.86); White Blood Count 7.10 thou/uL (4.3-10.9)
[2024-11-16 05:35] LABS: Anion Gap 6.3 mEq/L (5.0-15.0); BUN Blood Urea Nitrogen 13.0 mg/dL (7-18); Glucose Level 132.0 mg/dL (74-106); Magnesium 1.9 mg/dL (1.6-2.4); Potassium 3.3 mEq/L (3.5-5.1)
[2024-11-16] MEDS: KCL 20 MEQ/100 mL IVPB 20 MEQ/100 ML BAG IV SCH ×2 (09:00→10:41)
--- NOTE | 2024-11-16 22:51 | PN ---
Date of Progress Note: 11/16/2024 Subjective: The patient was seen this morning for followup. No new complaints or problems reported by her. Overall, her abdominal pain is better. She is going longer duration between pain medication dose yesterday. She did ambulate very well. She is complaining of her bed not being comfortable an d I have asked her to communicate with nursing staff to see if they can replace the bed with a differ ent bed today to get her more comfort. NG tube is in place draining greenish colored liquid. No bow el movement. Not passing any flatness. Objective: Vital Signs: Reviewed. HEENT: Unremarkable. Lungs: Clear to auscultation. No wheezing. No rales. Heart: Sounds normal. Abdomen: Presence of abdominal binder. Bowel sounds absent. Extremities: No leg edema. Laboratory Data: WBC 7.1, hemoglobin 11.5, platelets 276. Sodium 139, potassium 3.3, chloride 103, bicarb 33, BUN 13, creatinine 0.50, glucose 132, magnesium 1.9, phosphorus 3.5. Impression: 1. Small bowel obstruction. 2. Hypokalemia. 3. Anemia. 4. Hypertension. Plan: We will go ahead and continue current medication. Continue to follow with Dr. Potts. Calvin barbosa current TPN, IV antibiotics. Replace electrolyte per protocol. Ambulate with Physical Therapy and I will see her tomorrow for fol lowup. JEANA/MODL Voice ID: [id number] Report ID: [id number]
[2024-11-17 06:05] LABS: Absolute Lymphocytes (CBC) 1.6 K/uL (0.7-4.9); Hematocrit 33.6 % (36.0-45.0); Hemoglobin 12.0 g/dL (12.0-15.0); MCH 31.2 pg (27.0-35.0); MCHC 35.7 g/dL (32.0-36.0); MCV 87.6 fL (80-100); MPV 7.4 fL (7.6-11.3); Nucleated RBC Absolute Count 0.0 (0-0); Nucleated Red Blood Cells % 0.1 % (0-0); RBC Red Blood Cell Count 3.84 M/uL (3.86-4.86); White Blood Count 7.40 thou/uL (4.3-10.9)
[2024-11-17 06:29] LABS: Anion Gap 6.9 mEq/L (5.0-15.0); BUN Blood Urea Nitrogen 14.0 mg/dL (7-18); Glucose Level 109.0 mg/dL (74-106); Magnesium 2.1 mg/dL (1.6-2.4); Potassium 3.9 mEq/L (3.5-5.1)
[2024-11-17] MEDS: D5 0.9 NS 1,000 ML IV SCH (08:00)
[2024-11-17] MEDS: CITALOPRAM 10 MG TABLET PO SCH (08:41)
[2024-11-17] MEDS: PREGABALIN 50 MG CAP PO SCH (08:41)
[2024-11-17] MEDS ORDERED: KCL 20 MEQ/100 mL IVPB 20 MEQ/100 ML BAG IV SCH (09:00)
[2024-11-17] MEDS ORDERED: CITALOPRAM 10 MG TABLET PO SCH (09:00)
[2024-11-17] MEDS: POTASSIUM CL SA 10 MEQ TAB PO ONE (10:22)
[2024-11-17] MEDS: ACETAMINOPHEN 500 MG TAB PO PRN (14:05)
[2024-11-17] MEDS ORDERED: D5 0.9 NS 1,000 ML IV SCH (17:00)
--- NOTE | 2024-11-17 23:51 | PN ---
Date of Progress Note: 11/17/2024 Subjective: The patient was seen this morning for followup. No new complaints or problems reported by the patient, lying in bed, not in distress overall. Abdominal pain is better. Her NG tube was re moved yesterday by Dr. Potts and he did start her on clear liquid diet which she has tolerated very well. No bowel movement, but she is passing gas per rectum. She ambulated well yesterday. Objective: Vital Signs: Reviewed. HEENT: Unremarkable. Lungs: Clear to auscultation. Heart: Sounds normal. Abdomen: Soft. Bowel sounds present. No distention. Extremities: No leg edema. Laboratory Data: WBC 7.4, hemoglobin 12, platelets 323. Sodium 137, potassium 3.9, chloride 101, bi carb 33, BUN 14, creatinine 0.57, glucose 109, magnesium 2.1, phosphorus 3.8. Impression: 1. Small bowel obstruction. 2. Hypertension. 3. Type 2 diabetes mellitus. Plan: We will go ahead and continue current antibiotic. TPN will be discontinued after she runs out of current bag and we will start her on D5 NS IV fluid at 50 cc/hour. Ambulation was encouraged and possible discharge to go home in next 1 or 2 days and details were discussed with her. We will cont inue to follow up with Dr. Potts. I have advised the patient to try to use Tylenol if her pain is mild and she is going to try that instead of using narcotic pain medication. JEANA/MODL Voice ID: [id number] Report ID: [id number]
[2024-11-18] MEDS: D5 0.9 NS 1,000 ML IV SCH (01:09)
[2024-11-18 01:39] VITALS: O2SAT 99
[2024-11-18 05:18] VITALS: TEMP 98.1
[2024-11-18 05:56] LABS: Absolute Lymphocytes (CBC) 1.8 K/uL (0.7-4.9); Hematocrit 31.7 % (36.0-45.0); Hemoglobin 11.5 g/dL (12.0-15.0); MCH 31.6 pg (27.0-35.0); MCHC 36.4 g/dL (32.0-36.0); MCV 86.8 fL (80-100); MPV 7.6 fL (7.6-11.3); Nucleated RBC Absolute Count 0.0 (0-0); Nucleated Red Blood Cells % 0.2 % (0-0); RBC Red Blood Cell Count 3.65 M/uL (3.86-4.86); White Blood Count 6.70 thou/uL (4.3-10.9)
[2024-11-18 06:03] LABS: Anion Gap 7.0 mEq/L (5.0-15.0); BUN Blood Urea Nitrogen 12.0 mg/dL (7-18); Glucose Level 107.0 mg/dL (74-106); Magnesium 1.9 mg/dL (1.6-2.4); Potassium 4.0 mEq/L (3.5-5.1)
[2024-11-18 08:42] VITALS: BP 96/62
--- NOTE | 2024-11-19 07:12 | DS ---
Date of Discharge: 11/18/2024 Disposition: Discharged to go home. Physical Examination: HEENT: Unremarkable. Lungs: Clear to auscultation. Heart: Sounds normal. Abdomen: Soft. Bowel sounds normal. No guarding, rigidity, distention. Abdomen is nontender. Has mild tenderness around surgical site. Extremities: No leg edema. Laboratory Data: Today, WBC 6.7, hemoglobin 11.5, platelets 306. Sodium 138, potassium 4, chloride 105, bicarb 30, BUN 12, creatinine 0.62. Glucose was 107. Discharge Diagnoses: 1. Small bowel obstruction. 2. Hypokalemia. 3. Diverticulosis. 4. Type 2 diabetes mellitus. 5. Anemia, unspecified. Discharge Medications: Continue your prior home medications (Citalopram, Pregabalin and Duloxetine) except following changes: 1. STOP Mounjaro. 2 May use Tylenol 500 mg, 1 to 2 tablets by mouth three to four times a day as needed for pain. 3. Nichols 5 mg, take 1 tablet by mouth three times a day as needed for pain. 4. Metronidazole 500 mg, take 1 tablet by mouth three times a day with food for one week. 5. Ciprofloxacin 500 mg, take 1 tablet by mouth two times a day with food for one week. Prescriptions for Nichols, Metronidazole and Ciprofloxacin was sent to [facility] from Dr Zamora's office Diet: Soft diet Follow up with Dr. Zamora next week for follow up. Follow up with Dr. Potts in one week. Hospital Course: This is a 54-year-old pleasant female patient, who came into emergency room with abdominal pain, nausea, vomiting. Please see dictated H and P for more information. The patient presented to emergency room, was evaluated and admitted to the hospital with small-bowel obstruction. The patient had closed-loop small-bowel obstruction, and general surgeon [facility] Potts was consulted. The patient was kept n.p.o. IV fluid and IV antibiotics were started. NG tube was placed to low intermittent suction. The pain medication was given, nausea medicine was given. DVT prophylaxis was given, using Lovenox. With conservative treatment, patient's condition did not improve, so Dr. Potts recommended surgery. The patient agreed and surgery was done, about 10 cm for terminal small-bowel was removed. Because of this closed-loop bowel obstruction, resected bowel was ischemic, but not gangrenous in nature. After the surgery, patient recovered over period of last few days and at appropriate time Dr. Potts started her on clear liquid diet and then advanced to soft diet, which she is tolerating well. She is ambulating well and overall her condition is improved. The patient was taking Mounjaro at home for her type 2 diabetes mellitus and I have instructed her not to take this medication until further instruction and she verbalized understanding. Total time spent 40 minutes. JEANA/MODL Voice ID: [id number] Report ID: [id number] JUVENCIO
== END 2024-11-18 09:16 | disposition home or self-care (01) | DRG 329 ==
LOC: ER 16:37 → ERHOLD 19:48 → 2ND 21:07
PROVIDERS: ADMIT Internal Medicine; ATTEND Internal Medicine
PROC: 3E0436Z Introduction of Nutritional Substance into Central Vein, Percutaneous Approach (ICD-10-PCS; 2024-11-10)
PROC: 02H633Z Insertion of Infusion Device into Right Atrium, Percutaneous Approach (ICD-10-PCS; 2024-11-10)
PROC: 0T9B70Z Drainage of Bladder with Drainage Device, Via Natural or Artificial Opening (ICD-10-PCS; 2024-11-10)
PROC: 0DB80ZZ Excision of Small Intestine, Open Approach (ICD-10-PCS; principal; 2024-11-10 15:00)
PROC: 0DH67UZ Insertion of Feeding Device into Stomach, Via Natural or Artificial Opening (ICD-10-PCS; 2024-11-14)
DX: K56.50 Intestinal adhesions [bands], unspecified as to partial versus complete obstruction (principal); K55.019 Acute (reversible) ischemia of small intestine, extent unspecified; E87.6 Hypokalemia; D64.9 Anemia, unspecified; E78.5 Hyperlipidemia, unspecified; E11.9 Type 2 diabetes mellitus without complications; E66.01 Morbid (severe) obesity due to excess calories; K57.30 Diverticulosis of large intestine without perforation or abscess without bleeding; Z68.24 Body mass index [BMI] 24.0-24.9, adult; Z90.49 Acquired absence of other specified parts of digestive tract
CPT/HCPCS: 36415; 71045; 74018; 74177; 74178; 80048; 80053; 82947; 83605; 83690; 83735; 83880; 84100; 84132; 84484; 85025; 85610; 85730; 87040; 88305; 88307; 93005; 94010; 96361; 96365; 96375; 97110; 97116; 97161; 97530; 99285; J0330; J0744; J1171; J1650; J2003; J2250; J2405; J2543; J2704; J3010; J3475; J3480; J7030; J7042; Q9967